=== PATIENT | female | born 2005 | race Hispanic/Latino ===

== ENCOUNTER 2024-04-28 16:49 | Emergency (ER) | payer SELFPAY ==
[~2024-04-28] VITALS: Ht 157.5 cm; Wt 72.0 kg
[2024-04-28 16:50] VITALS: BP 130/66; TEMP 97.2; O2SAT 98
== END 2024-04-28 22:05 | disposition left against medical advice (07) ==
LOC: M ED 16:49
DX: Z53.21 Procedure and treatment not carried out due to patient leaving prior to being seen by health care provider (principal)

== ENCOUNTER 2024-08-03 16:59 | Emergency (ER) | payer OTHER, SELFPAY ==
[~2024-08-03] VITALS: Ht 157.5 cm; Wt 73.8 kg
[2024-08-03 19:23] VITALS: BP 130/60; TEMP 97.7; O2SAT 100
== END 2024-08-03 19:26 | disposition home or self-care (01) ==
LOC: M ED 16:59
DX: S63.602A Unspecified sprain of left thumb, initial encounter (principal); X50.0XXA Overexertion from strenuous movement or load, initial encounter; F10.10 Alcohol abuse, uncomplicated; Y92.009 Unspecified place in unspecified non-institutional (private) residence as the place of occurrence of the external cause; Y93.89 Activity, other specified; Y99.9 Unspecified external cause status

== ENCOUNTER 2025-02-16 06:38 | Emergency (ER) | payer OTHER ==
[~2025-02-16] VITALS: Ht 157.5 cm; Wt 72.5 kg
[2025-02-16] MEDS: IBUPROFEN 600MG TAB PO ONE (08:03)
[2025-02-16 09:24] VITALS: BP 109/67; TEMP 97.7; O2SAT 98
== END 2025-02-16 09:24 | disposition home or self-care (01) ==
LOC: M ED 06:38
DX: J02.9 Acute pharyngitis, unspecified (principal); F17.200 Nicotine dependence, unspecified, uncomplicated